=== PATIENT | female | born 1990 | race African-American/Black ===

== ENCOUNTER → 2021-10-10 14:07 | Outpatient (BNVA) | payer OTHER, SELFPAY | PROVIDERS: PCP Nurse Practitioner Family; Visit Provider Nurse Practitioner Family | DX: F07.81 Postconcussional syndrome (principal); G43.001 Migraine without aura, not intractable, with status migrainosus; R42 Dizziness and giddiness; S09.90XS Unspecified injury of head, sequela | CPT/HCPCS: 99212 ==

== ENCOUNTER → 2021-11-21 15:34 | Outpatient (BNVA) | payer OTHER, SELFPAY | PROVIDERS: PCP Nurse Practitioner Family; Visit Provider Nurse Practitioner Family | DX: G43.001 Migraine without aura, not intractable, with status migrainosus (principal); F07.81 Postconcussional syndrome | CPT/HCPCS: 99212 ==

== ENCOUNTER 2023-09-29 13:10 | Outpatient (AMB) | payer OTHER, SELFPAY ==
[2023-09-29 13:18] VITALS: BP 130/90; PULSE 78; O2SAT 99; BMI 53.7
--- NOTE | 2023-09-29 13:18 | A.OFFVIS_ITS ---
Intake Vital Signs 09/29/23 13:18 Height 5 ft 2.5 in Weight 298 lb 2 oz BMI 53.7 BP 130/90 H Blood Pressure Location Rt brachial Position Sitting Pulse 78 Pulse Source Pulse Oximeter Pulse Oximetry (%) 99 Oxygen Delivery Method Room Air Intake Visit Reasons: follow up-Confirmed Intake Note: Patient presents for f/u migraines. Rehabilitation Aide Required: No Accompanied by: Self / Same As Patient Allergies olives Allergy (Intermediate, Uncoded 11/21/21 15:41) Vomiting Medication List - Last Reconciled 09/29/23 by Nhi Paz, BILLY atomoxetine 18 mg PO QAM baclofen 10 mg PO .qhs yeeejcruqc-nzdekziyfbldk-ybvy 50-325-40 mg 1 - 2 tabs PO Q4H PRN 30 days cetirizine 10 mg PO DAILY galcanezumab-gnlm (Emgality Pen) 240 mg (2 mL) subcut ONCE 30 days galcanezumab-gnlm (Emgality Pen) 120 mg subcut .monthly 30 days riboflavin (vitamin B2) 100 mg PO BID HPI HPI Comments History of Present Illness Details 33-yr-old female presents for f/u visit. Last visit was in Nov 2021. Pt states she had not had f/u d/t issues w/ her work comp case. The case has since been closed but they will continue to cover her postconcussive medical expenses. She had psychiatry eval at [facility]- revealed cognitive difficulties a/w ADD and postconcussive cognitive difficulties. She was started on Adderall Er 20mg- but did not tolerate d/t cardiac s/e's- palpitations. Was switched to Strattera- not sure if this is effective yet. PCP is managing this. Had stopped Emgality and other migraine tx- d/t ran out of meds as she had not had f/u. Migraines were stable for some time. Was managing w/ prn Iburpoefn. Them marked increased frequency and severity of migraines over the summer- pt was unsure what triggered this. The migraines caused all over head pain, photo/phonophobia, activity intolerance, brain fog- had difficulty caring for her dtr and soing her school work. The headaches were not responding to Iburpofen. PCP gave her Sumatriptan which did help initially but then effect waned- believes she took all 9 tabs in 1 week. Jul 05 brain MRI showed - Normal MRI of the brain. Overall low T1 marrow signal. This can be related to chronic anemia or other marrow infiltrative disorders. Pt has chronic mild anemia and sickle cell trait. Recent ferritin was > 200. Now, migraines improved, but still having 1 migraine day per month. Using Ibuporfen 800mg prn. [facility] Medical History (Updated 10/04/23 @ 18:15 by BILLY Scott) Sickle cell trait Family History Daughter Sickle cell disease Social History Alcohol intake: never Patient Tobacco Use Status: Never used Tobacco Review of Systems Const All systems reviewed & are unremarkable except as noted in HPI and below Physical Exam Vital Signs: Last Vital Signs Pulse 78 09/29/23 13:18 BP 130/90 H 09/29/23 13:18 Pulse Ox 99 09/29/23 13:18 Oxygen Delivery Method Room Air 09/29/23 13:18 BMI result Body Mass Index 53.7 Const General: cooperative and no acute distress Orientation/consciousness: patient oriented x3 HEENT Head: Yes normocephalic Resp Effort & Inspection: normal respiratory effort and able to speak in complete sentences Neuro General: patient oriented x3, gait normal and CN's II-XI intact bilaterally Cognition (Neuro): normal cognition Motor exam (neuro): 5/5 motor strength present throughout Psych Appearance: grossly normal Mental Status: mental status grossly normal Speech and movement: Normal speech and movement present Affect: normal affect Attitude: cooperative Thought process: Normal thought process present Thought content: Normal thought content present Insight: Good insight present (Psych) Judgement: Good judgement present (Psych) Assessment & Plan Assessment & Plan (1) Postconcussional syndrome: Comment: migraine, dizziness, cognitive difficulties s/p work-place head injury January 24, 2018 Code(s): F07.81 - Postconcussional syndrome (2) Migraine without aura, not intractable, with status migrainosus: Comment: s/p work-place head injury January 24, 2018 Code(s): G43.001 - Migraine without aura, not intractable, with status migrainosus (3) ADD (attention deficit disorder): Comment: exacerbated by postconcussive syndrome Code(s): F98.8 - Other specified behavioral and emotional disorders with onset usually occurring in childhood and adolescence Plan For overall postconcussive management: Continue to optimize good self-care, including but not limited to maintaining a healthy diet, adequate fluid intake, adequate sleep, and engaging in regular physical activity. For headache triggers: Track headaches. Light sensitivity tips: Patient may try blue light filtering glasses, green glasses, green light therapy. For cognitive difficulties: Continue Strattera, if ineffective, consider retrying Adderall XR at a lower dose, say 10-15mg qam. Information shared on non-pharmacological approaches to manage post- concussive/ADD s/s For acute postconcussive migraine headache treatment: Continue Sumatriptan 100mg prn. May take w/ Ibuprofen prn. Previous acute migraine medication trials: Fioricet- ineffective Acute migraine medication contraindications: None at this time For postconcussive migraine headache prevention medication: Resume Riboflavin 400mg qam Resume Magnesium 400mg qhs Resume Emgality 240mg x's 1 (loading dose, as pt has been off Emgality for many months), then 120mg sc q month. Reviewed potential adverse effects of Emgality, including but not limited to i njection site reactions. Previous migraine prevention medication trials: Propranolol- not tolerated. Migraine prevention medication contraindications: Topiramate d/t risk fo cognitive side effects in a postconcusssive pt. Pt to follow-up in 3 months or sooner prn. Medications: New riboflavin (vitamin B2) 400 mg PO DAILY 30 days 30 tabs 6RF magnesium oxide may hold for loose stools 400 mg PO BEDTIME 30 days 30 tabs 6RF sumatriptan succinate (0.5 - 1 x 100 mg) 50 - 100 mg orally at onset of headache, may repeat in 2 hrs PRN; max 2 tabs per day or 4 tabs/week (may take with Ibuprofen) 30 days 12 tabs 6RF migraine headache ibuprofen 800 mg PO Q8H 30 days PRN 60 tabs 2RF migraine headache MDD 2 tabs Refilled galcanezumab-gnlm (Emgality Pen) 240 mg (2 mL) subcut ONCE 30 days 60 mL 0RF Coding Level of Care Code Est Pt Level 4 (67619) Diagnoses Postconcussional syndrome F07.81 Migraine without aura, not intractable, with status migrainosus G43.001 ADD (attention deficit disorder) F98.8
== END 2023-09-29 14:11 | disposition home or self-care (01) ==
PROVIDERS: PCP Nurse Practitioner Family; Visit Provider Nurse Practitioner Family
DX: Z04.2 Encounter for examination and observation following work accident (principal); F07.81 Postconcussional syndrome; G44.319 Acute post-traumatic headache, not intractable; R41.840 Attention and concentration deficit
CPT/HCPCS: 99214

== ENCOUNTER → 2023-09-29 13:10 | Outpatient (BNVA) | payer OTHER, SELFPAY | PROVIDERS: PCP Nurse Practitioner Family; Visit Provider Nurse Practitioner Family | DX: F07.81 Postconcussional syndrome (principal); G43.001 Migraine without aura, not intractable, with status migrainosus; F98.8 Other specified behavioral and emotional disorders with onset usually occurring in childhood and adolescence | CPT/HCPCS: 99212 ==

== ENCOUNTER 2023-12-30 13:11 | Outpatient (AMB) | payer OTHER, SELFPAY ==
[2023-12-30 13:13] VITALS: BP 116/80; PULSE 72; O2SAT 100; BMI 55.1
--- NOTE | 2023-12-30 13:13 | A.OFFVIS_ITS ---
Intake Vital Signs 12/30/23 13:13 Height 5 ft 2.5 in Weight 306 lb BMI 55.1 BP 116/80 Blood Pressure Location Rt brachial Position Sitting Pulse 72 Pulse Source Pulse Oximeter Pulse Oximetry (%) 100 Oxygen Delivery Method Room Air Intake Visit Reasons: 3 mo f/u -Conf Intake Note: Patient presents for 3 month follow up. headaches have gotten better until the last few weeks they have been triggered Allergies olives Allergy (Intermediate, Uncoded 12/30/23 13:16) Vomiting Medication List - Last Reconciled 12/30/23 by BILLY Scott atomoxetine 18 mg PO QAM baclofen 10 mg PO .qhs pnpuuncuvv-wwceqibxftcch-dowf 50-325-40 mg 1 - 2 tabs PO Q4H PRN 30 days cetirizine 10 mg PO DAILY galcanezumab-gnlm (Emgality Pen) 120 mg subcut .monthly 30 days galcanezumab-gnlm (Emgality Pen) 240 mg (2 mL) subcut ONCE 30 days ibuprofen 800 mg PO Q8H PRN 30 days MDD 2 tabs magnesium oxide 400 mg PO BEDTIME 30 days riboflavin (vitamin B2) 400 mg PO DAILY 30 days sumatriptan succinate 50 - 100 mg orally at onset of headache, may repeat in 2 hrs PRN; max 2 tabs per day or 4 tabs/week (may take with Ibuprofen) 30 days HPI HPI Comments History of Present Illness Details 33-yr-old female presents for f/u visit. Pt denies any significant interval medical changes. She did stop the Atomoxetine- was not tolerating. She has tried using her older Adderral ER 20mg- it helps with cognition, but it can make her BP raise too high. She is in need of a new med presciber. 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 In terms of the headaches, she was doing better but more recently, has been having more headaches. She is a few weeks over due for her Emaglity and has had some stress r/t her dtr being recently hospitalized. Has been waiting to take her Sumatriptan- did not wnat to take it too often. [facility] Medical History (Updated 10/04/23 @ 18:15 by BILLY Scott) Sickle cell trait Family History Daughter Sickle cell disease Social History Alcohol intake: never Patient Tobacco Use Status: Never used Tobacco Physical Exam Vital Signs: Last Vital Signs Pulse 72 12/30/23 13:13 BP 116/80 12/30/23 13:13 Pulse Ox 100 12/30/23 13:13 Oxygen Delivery Method Room Air 12/30/23 13:13 BMI result Body Mass Index 55.1 Const General: cooperative and no acute distress Orientation/consciousness: patient oriented x3 Resp Effort & Inspection: normal respiratory effort and able to speak in complete sentences Neuro General: patient oriented x3 Cranial nerves: Yes CN's II-XII intact bilaterally Cognition (Neuro): normal cognition Psych Appearance: grossly normal Mental Status: mental status grossly normal Speech and movement: Normal speech and movement present Affect: normal affect Attitude: cooperative Assessment & Plan Assessment & Plan (1) Postconcussional syndrome: Comment: migraine, dizziness, cognitive difficulties s/p work-place head injury January 24, 2018 Code(s): F07.81 - Postconcussional syndrome (2) Migraine without aura, not intractable, with status migrainosus: Comment: s/p work-place head injury January 24, 2018 Code(s): G43.001 - Migraine without aura, not intractable, with status migrainosus (3) ADD (attention deficit disorder): Comment: exacerbated by postconcussive syndrome Code(s): F98.8 - Other specified behavioral and emotional disorders with onset usually occurring in childhood and adolescence Plan For overall postconcussive management: Continue to optimize good self-care, including but not limited to maintaining a healthy diet, adequate fluid intake, adequate sleep, and engaging in regular physical activity. For headache triggers: Track headaches. Light sensitivity tips: Patient may try blue light filtering glasses, green glasses, green light therapy. For cognitive difficulties: Trial lower dose of Adderall XR 15mg qam. Information again shared on non-pharmacological approaches to manage post- concussive/ADD s/s For acute postconcussive migraine headache treatment: Continue Sumatriptan 100mg prn. May take w/ Ibuprofen prn. Previous acute migraine medication trials: Fioricet- ineffective Acute migraine medication contraindications: None at this time ? For postconcussive migraine headache prevention medication: Riboflavin 400mg qam Magnesium 400mg qhs Emgality 120mg sc q month. Previous migraine prevention medication trials: Propranolol- not tolerated. Migraine prevention medication contraindications: Topiramate d/t risk fo cognitive side effects in a postconcusssive pt. ? Will f/u w/ pt in 2 wks to check status, and next appt in 4-6 months or sooner prn. Medications: New dextroamphetamine-amphetamine 15 mg ER (Adderall XR) Partial Fill upon patient request. 15 mg PO QAM 14 days 14 caps 0RF Discontinued zgdrqwfkqx-otyhxniyfzmjb-vwex 50-325-40 mg max 4 tabs/day and 8 tabs per week Discontinued Reason: Patient no longer taking 1 - 2 tabs PO Q4H 30 days PRN 20 tabs 3RF headache galcanezumab-gnlm (Emgality Pen) Discontinued Reason: Doctor's Order 240 mg (2 mL) subcut ONCE 30 days 60 mL 0RF Coding Level of Care Code Est Pt Level 4 (41152) Diagnoses Postconcussional syndrome F07.81 Migraine without aura, not intractable, with status migrainosus G43.001 ADD (attention deficit disorder) F98.8
== END 2023-12-30 13:53 | disposition home or self-care (01) ==
PROVIDERS: PCP Nurse Practitioner Family; Visit Provider Nurse Practitioner Family
DX: G44.309 Post-traumatic headache, unspecified, not intractable (principal); F07.81 Postconcussional syndrome; R41.840 Attention and concentration deficit
CPT/HCPCS: 99214

== ENCOUNTER → 2023-12-30 13:11 | Outpatient (BNVA) | payer OTHER, SELFPAY | PROVIDERS: PCP Nurse Practitioner Family; Visit Provider Nurse Practitioner Family | DX: F07.81 Postconcussional syndrome (principal); G43.001 Migraine without aura, not intractable, with status migrainosus; F98.8 Other specified behavioral and emotional disorders with onset usually occurring in childhood and adolescence; Z79.899 Other long term (current) drug therapy | CPT/HCPCS: 99212 ==